=== PATIENT | male | born 1990 ===

== ENCOUNTER 2021-09-20 20:55 | Observation (INO) | payer OTHER, BC ==
[2021-09-20] MEDS ORDERED: Sodium Chloride 0.9% 1,000 ML IV ONE ×2 (20:57→22:47)
[2021-09-20] MEDS ORDERED: Ondansetron 4 MG/2 ML SDV IVPUSH ONE (20:58)
[2021-09-20] MEDS ORDERED: HYDROmorphone 1 MG/ML Syringe IVPUSH ONE (20:58)
[2021-09-20] MEDS ORDERED: Diphtheria,Pertussis(Acell),Tetanus Vaccine 0.5 ML Syringe IM ONE (20:59)
[2021-09-20] MEDS ORDERED: Iopamidol 755 MG/ML 500 ML Multipack Bottle IVPUSH STA (21:19)
[2021-09-20 21:33] LABS: CARBON DIOXIDE,CO2 25.4 mmol/L (21.0-32.0); POTASSIUM,K 3.5 mmol/L (3.5-5.1)
[2021-09-20] MEDS ORDERED: Ondansetron 4 MG/2 ML SDV IVPUSH PRN (22:51)
[2021-09-20] MEDS ORDERED: Morphine 4 MG/ML VIAL IVPUSH PRN ×2 (22:51)
[2021-09-20] MEDS ORDERED: Ketorolac 30 MG/ML SDV IVPUSH ONE (23:04)
[2021-09-21] MEDS: Diazepam 5 MG Tab PO SCH ×3 (00:07→11:53)
[2021-09-21] MEDS: Cyclobenzaprine 10 MG Tab PO SCH ×2 (00:07→06:17)
[2021-09-21] MEDS: Morphine 2 MG/ML SYRINGE IVPUSH PRN ×2 (04:01→09:11)
== END 2021-09-21 12:25 | disposition home or self-care (01) ==
LOC: MW.ED 20:55 → MW.MS 22:46
PROVIDERS: ADMIT Surgery; ATTEND Surgery
DX: S27.0XXA Traumatic pneumothorax, initial encounter (principal); S27.322A Contusion of lung, bilateral, initial encounter; S22.31XA Fracture of one rib, right side, initial encounter for closed fracture; S22.42XA Multiple fractures of ribs, left side, initial encounter for closed fracture; S40.212A Abrasion of left shoulder, initial encounter; F17.200 Nicotine dependence, unspecified, uncomplicated; W20.8XXA Other cause of strike by thrown, projected or falling object, initial encounter; Y92.89 Other specified places as the place of occurrence of the external cause; Z79.899 Other long term (current) drug therapy; Z98.890 Other specified postprocedural states
CPT/HCPCS: 36415; 70450; 71046; 71260; 72125; 72128; 72131; 74177; 80053; 83690; 84484; 85025; 87635; 90471; 90715; 96361; 96374; 96375; 96376; 99285; A9270; G0378; J1170; J1885; J2270; J2405; J7030; Q9967; U0002